=== PATIENT | male | born 1975 | race Caucasian/White ===

== ENCOUNTER 2019-07-08 11:52 | Emergency (ER) | payer BC, OTHER ==
[~2019-07-08] VITALS: Ht 172.7 cm; Wt 81.6 kg
[2019-07-08 11:59] VITALS: BP_SYST 131
--- NOTE | 2019-07-08 12:04 | NUR ---
Patient to ER bed 8 to gown for evaluation. Side rails up. Report given to Miguel Angel SHAH.
--- NOTE | 2019-07-08 12:12 | NUR ---
Pt AAOx4 ambulated into ED c/o withdrawals symptoms starting Sunday night. 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 Pt now states he feels very anxious. Pt states he cannot afford rehab and needs to be treated in ED to get his "life back on the right track." No other injuries/complaints per pt/noted. Will continue to monitor.
--- NOTE | 2019-07-08 12:14 | NUR ---
ER Dr. Ordoñez at bedside examining patient.
[2019-07-08] MEDS ORDERED: NACL 0.9% 1,000 ML IV ONE (12:30)
[2019-07-08] MEDS ORDERED: LORazepam 2 MG/ML VIAL (FOR ER USE) IVP ONE (12:30)
--- NOTE | 2019-07-08 12:30 | NUR ---
# 20 gauge angiocath placed to LAC. Use of asceptic technique. Opsite placed over site. Blood return noted. Blood for lab drawn from site. Flushed with 10 cc of normal saline. No evidence of infiltration noted. Patient tolerated well.
[2019-07-08 12:52] LABS: CALCIUM 9.4 mg/dL (8.4-11.0); CREATININE 1.01 mg/dL (0.55-1.30); POTASSIUM 3.8 mmol/L (3.5-5.1)
[2019-07-08 12:54] LABS: BASOPHILS # (AUTO) 0.1 K/uL (0.0-0.2); BASOPHILS % (AUTO) 0.7 % (0.0-2.0); EOSINOPHILS # (AUTO) 0.1 K/uL (0.0-0.4); EOSINOPHILS % (AUTO) 1.4 % (0.0-4.0); HEMATOCRIT 47.8 % (36-54); HEMOGLOBIN 17.1 g/dL (14.0-18.0); LYMPHOCYTES % (AUTO) 28.3 % (20.5-51.5); MEAN CORPUSCULAR HEMOGLOBIN 33 pg (27-31); MEAN CORPUSCULAR HGB CONC 36 % (32-36); MEAN CORPUSCULAR VOLUME 91 fL (79.0-98.0); MONOCYTES # (AUTO) 0.8 K/uL (0.0-1.0); NEUTROPHILS # (AUTO) 6.7 K/uL (1.8-7.7); NEUTROPHILS % (AUTO) 62.6 % (40.0-70.0); PLATELET COUNT (AUTO) 232 K/uL (130-430); RED BLOOD CELL COUNT(AUTO) 5.25 MIL/uL (4.2-6.2); RED CELL DISTRIBUTION WIDTH 13.1 % (9.0-15.0); WHITE BLOOD COUNT (AUTO) 10.7 K/uL (4.8-10.8)
[2019-07-08 12:56] LABS: ALBUMIN 4.4 g/dL (3.4-4.8); TOTAL BILIRUBIN 0.8 mg/dL (0.0-1.0)
--- NOTE | 2019-07-08 13:39 | NUR ---
pt is currently sleeping in bed. Eyes are closed.
--- NOTE | 2019-07-08 14:44 | NUR ---
Patient given written and verbal discharge instructions and verbalizes understanding. ER MD discussed with patient the results and treatment provided. Patient in stable condition. ID arm band removed. IV catheter removed intact and dressing applied, no active bleeding. Rx of ativan given. Patient educated on pain management and to follow up with PMD. Pain Scale 0/10. Opportunity for questions provided and answered. Medication side effect fact sheet provided.
[2019-07-08 14:46] VITALS: BP_SYST 109
== END 2019-07-08 14:46 | disposition home or self-care (01) ==
LOC: SED 11:52
DX: F10.239 Alcohol dependence with withdrawal, unspecified (principal); F41.9 Anxiety disorder, unspecified; Z88.0 Allergy status to penicillin; Z88.6 Allergy status to analgesic agent; Y90.6 Blood alcohol level of 120-199 mg/100 ml
CPT/HCPCS: 36415; 80053; 83690; 85025; 96374; 99283; G0482; J2060; J7030